=== PATIENT | male | born 1980 | race Caucasian/White ===

== ENCOUNTER 2017-12-24 15:38 | Emergency (ER) | payer SELFPAY ==
[~2017-12-24] VITALS: Ht 170.2 cm; Wt 100.7 kg
[~2017-12-24 15:38] MED LIST: PRED10PA PO
[2017-12-24 15:42] VITALS: BP 137/90; PULSE 90; RESP 16; TEMP 98.4; O2SAT 98
--- NOTE | 2017-12-24 16:14 | PD ---
HPI Chief Complaint: Edema Time Seen by Provider: 15:52 Travel History International Travel<30 days: No Contact w/Intl Traveler<30days: No Traveled to known affect area: No History of Present Illness HPI This patient complains of 24 hours of pain and swelling in his fingers hands wrists and ankles. He has history of gout. He usually gets gout flares in the great toe. He denies injury or fever. He does have some itching in those areas. No shortness of breath or swelling of lips or tongue. Symptom severity is moderate. No alleviating factors. No exacerbating factors. PFSH Past Medical History Medical History: Denies Significant Hx Diminished Hearing: No Gout: Yes Tetanus Vaccination: Unknown Influenza Vaccination: No Past Surgical History Surgical History: No Previous Surgery Social History Alcohol Use: Yes (WEEKENDS) Tobacco Use: No Substance Use: No Allergies-Medications (Allergen,Severity, Reaction): Coded Allergies: No Known Allergies (Unverified Adverse Reaction, Unknown, 12/24/17) Reported Meds & Prescriptions Reported Meds & Active Scripts Active Review of Systems General / Constitutional: No: Fever Eyes: No: Visual changes HENT: No: Headaches Cardiovascular: No: Chest Pain or Discomfort Respiratory: No: Shortness of Breath Gastrointestinal: No: Abdominal Pain Genitourinary: No: Dysuria Musculoskeletal: Positive: Arthralgias, Pain Skin: Positive Itching, No Rash Neurologic: No: Weakness Psychiatric: No: Depression Endocrine: No: Polydipsia Hematologic/Lymphatic: No: Easy Bruising Physical Exam Narrative GENERAL: Well-nourished, well-developed patient in no apparent distress. SKIN: Focused skin assessment reveals no rash and nodules. Skin is Warm and dry. HEAD: Atraumatic. Normocephalic. EYES: Pupils equal and round. No scleral icterus. No injection or drainage. ENT: No nasal bleeding or discharge. Mucous membranes pink and moist. NECK: Trachea midline. No JVD. CARDIOVASCULAR: Regular rate and rhythm. No murmur appreciated. RESPIRATORY: No accessory muscle use. Clear to auscultation. Breath sounds equal bilaterally. GASTROINTESTINAL: Abdomen soft, non-tender, nondistended. Hepatic and splenic margins not palpable. MUSCULOSKELETAL: No obvious deformities. No clubbing. No cyanosis. No edema. And a bit of redness and a bit of swelling in both wrists and both ankles and both sets of MCPs and PIP joints NEUROLOGICAL: Awake and alert. No obvious cranial nerve deficits. Motor grossly within normal limits. Normal speech. PSYCHIATRIC: Appropriate mood and affect; insight and judgment normal. Patient has some warmth Data Data Last Documented VS Vital Signs Date Time Temp Pulse Resp B/P (MAP) Pulse Ox O2 Delivery O2 Flow Rate FiO2 12/24/17 15:53 Room Air 12/24/17 15:42 98.4 90 16 137/90 (106) 98 Orders Orders Methylprednisolone So Succ Inj (Solumedr (12/24/17 16:15) Diphenhydramine (Benadryl) (12/24/17 16:15) MDM Medical Decision Making Medical Screen Exam Complete: Yes Emergency Medical Condition: Yes Medical Record Reviewed: Yes Differential Diagnosis Rheumatoid arthritis, lupus, allergic reaction, gout Narrative Course I have reviewed the patient's electronic medical record. This patient has 24 hours of symmetric polyarthritis. It is affecting only small joints. No clinical suspicion of septic joint. His vital signs are normal Alternatively could be some degree of allergic reaction although I think less likely. There is a bit of swelling and lesions have some features consistent with urticaria I gave him 125 mg Solu-Medrol and 50 mg Benadryl He will ice and elevate. I am prescribing prednisone. He will use Benadryl as needed. Follow-up with primary care. Return if worse. Diagnosis Primary Impression: Symmetrical polyarthritis Additional Impression: Urticaria Additional Instructions: Ice and elevate wrists and ankles Use prednisone The patient was advised to follow up with their physician and return if they worsen. Use Benadryl every 6 hours as needed Med/Other Pt SpecificInfo: Prescription(s) given Disposition: 01 DISCHARGE HOME Condition: Stable Steve Steven MD Dec 24, 2017 16:14
[2017-12-24] MEDS ORDERED: diphenhydrAMINE HCL 50 MG CAP PO ONE (16:15)
[2017-12-24] MEDS ORDERED: methylPREDNISolone SOD SUCC 125 MG/2 ML VIAL IM ONE (16:15)
[2017-12-24] MEDS ORDERED: PRED20 PO (16:15)
== END 2017-12-24 17:03 | disposition home or self-care (01) ==
LOC: PHED 15:38
DX: M13.0 Polyarthritis, unspecified (principal); L50.9 Urticaria, unspecified
CPT/HCPCS: 96372; 99283; J2930; Q0163